=== PATIENT | female | born 1965 | race Two or more races ===

== ENCOUNTER 2020-01-17 16:23 | Emergency (ER) | payer OTHER ==
[~2020-01-17] VITALS: Ht 154.9 cm; Wt 96.2 kg
[2020-01-17 16:39] VITALS: BP 150/93
[2020-01-17] MEDS ORDERED: LORazepam 1mg tab ORAL ONE (16:45)
[2020-01-17 17:04] LABS: BASOPHILS % (AUTO) 0.4 % (0.0-2.0); EOSINOPHILS % (AUTO) 0.1 % (0.0-3.0); HEMATOCRIT 37.9 % (37.0-47.0); HEMOGLOBIN 12.9 G/DL (12.0-16.0); LYMPHOCYTES % (AUTO) 14.6 % (20.0-45.0); MEAN CORPUSCULAR VOLUME 87 FL (80-99); MONOCYTES % (AUTO) 2.1 % (1.0-10.0); NEUTROPHILS % (AUTO) 82.8 % (45.0-75.0); PLATELET COUNT 292 K/UL (150-450); RED BLOOD COUNT 4.33 M/UL (4.20-5.40); RED CELL DISTRIBUTION WIDTH 13.1 % (11.6-14.8); WHITE BLOOD COUNT 11.6 K/UL (4.8-10.8)
[2020-01-17 17:10] LABS: APPEARANCE,URINE CLEAR; BILIRUBIN, URINE NEGATIVE (NEGATIVE); COLOR,URINE PALE YELLOW; GLUCOSE, URINE (UA) NEGATIVE (NEGATIVE); KETONES,URINE NEGATIVE (NEGATIVE); LEUKOCYTE ESTERASE ,URINE NEGATIVE (NEGATIVE); NITRITE,URINE NEGATIVE (NEGATIVE); PH,URINE 6.5 (4.5-8.0); PROTEIN,URINE 2+ (NEGATIVE); UROBILINOGEN,URINE NORMAL MG/DL (0.0-1.0)
[2020-01-17 17:45] LABS: ANION GAP 12 mmol/L (5-15); BLOOD UREA NITROGEN 22 mg/dL (7-18); CALCIUM 8.3 MG/DL (8.5-10.1); CARBON DIOXIDE 26 MMOL/L (21-32); CHLORIDE 106 MMOL/L (98-107); CREATININE 0.9 MG/DL (0.55-1.30); SODIUM 144 MMOL/L (136-145)
--- NOTE | 2020-01-17 17:54 | Emergency Room Report ---
History of Present Illness General Chief Complaint: General Complaint Source: Patient Present Illness HPI 54-year-old female with no known significant past medical history here complaining of anxiety. Patient reports that she is more anxious now due to recent work situation, however denies any SI or HI. Reports that she went to her primary doctor 5 days ago and was given a prescription for prednisone, hydro xyzine and omeprazole due to the symptoms that she was experiencing. Denies any chest pain shortness of breath at this time complains of agitation denies any chest pain radiation dizziness. Denies any shortness of breath, cough and congestion, fever and chills, abdominal pain, nausea vomiting diarrhea. Appears to have high blood pressure denies history of hypertension. Reports that she takes hydroxyzine at night as she was experiencing difficulty sleeping. Denies any tobacco smoke, drug use, alcohol intake. Denies any unilateral generalized weakness. Is neurovascularly intact Allergies: Coded Allergies: No Known Allergies (Unverified , 01/17/20) COVID-19 Screening Contact w/high risk pt: No Experienced COVID-19 symptoms?: No COVID-19 Testing performed HEALTH CARE ANALYST: No Patient History Past Medical History: see triage record Past Surgical History: none Pertinent Family History: none Last Menstrual Period: na Now: No Immunizations: UTD Reviewed Nursing Documentation: PMH: Agreed; PSxH: Agreed Nursing Documentation-PMH Past Medical History: No History, Except For History Of Psychiatric Problem: Yes - anxiety Review of Systems All Other Systems: negative except mentioned in HPI Physical Exam Vital Signs Date Time Temp Pulse Resp B/P (MAP) Pulse Ox O2 Delivery O2 Flow Rate FiO2 01/17/20 16:27 97.5 67 15 180/100 (126) 99 Room Air Sp02 EP Interpretation: reviewed, abnormal - Elevated blood pressure General Appearance: alert, non-toxic, mild distress Head: normocephalic Eyes: bilateral eye normal inspection, bilateral eye PERRL ENT: hearing grossly normal, normal pharynx, no angioedema, normal voice Neck: full range of motion, supple/symm/no masses Respiratory: chest non-tender, lungs clear, normal breath sounds, no rhonchi, no respiratory distress, no retraction, no accessory muscle use, no wheezing, speaking full sentences Cardiovascular #1: regular rate, rhythm, no edema, no murmur Cardiovascular #2: 2+ carotid (R), 2+ carotid (L), 2+ radial (R), 2+ radial (L), 2+ dorsalis pedis (R), 2+ dorsalis pedis (L) Gastrointestinal: normal bowel sounds, non tender, soft, non-distended, no guarding, no rebound Rectal: deferred Genitourinary: no CVA tenderness Musculoskeletal: back normal Neurologic: alert, motor strength/tone normal, oriented x3, sensory intact, responsive, speech normal Psychiatric: no suicidal/homicidal ideation, anxious Skin: no rash Lymphatic: no adenopathy Medical Decision Making PA Attestation All my diagnosis and treatment plans were reviewed ad discussed with my supervising physician Dr. Mendoza Diagnostic Impression: Primary Impression: HTN (hypertension) Additional Impressions: Elevated brain natriuretic peptide (BNP) level Anxiety ER Course 54-year-old female with no known significant past medical history here complaining of anxiety. Patient reports that she is more anxious now due to recent work situation, however denies any SI or HI. Reports that she went to her primary doctor 5 days ago and was given a prescription for prednisone, hydroxyzine and omeprazole due to the symptoms that she was experiencing. Denies any chest pain shortness of breath at this time complains of agitation denies any chest pain radiation dizziness. Denies any shortness of breath, cough and congestion, fever and chills, abdominal pain, nausea vomiting diarrhea. Appears to have high blood pressure denies history of hypertension. Reports that she takes hydroxyzine at night as she was experiencing difficulty sleeping. Denies any tobacco smoke, drug use, alcohol intake. Denies any unilateral generalized weakness. Is neurovascularly intact Ddx considered but are not limited to: generalized anxiety disorder, panic attack, depression with psycotic featurs, bipolar disorder, drug overdose Vital signs: are WNL, pt. is afebrile H&PE are most consistent with: Hypertension, elevated BNP, anxiety ORDERS: CBC, CMP, UA, tox screen, troponin, EKG, chest x-ray, EtOH level ED INTERVENTIONS: P.o. Ativan DISCHARGE: At this time pt. is stable for d/c to home. Will provide printed patient care instructions, and any necessary prescriptions. Care plan and follow up instructions have been discussed with the patient prior to discharge. Follow-up with your primary care provider and possibly with beverage host due to your high blood pressure, also you need to follow-up with psychiatrist or psychologist regarding her anxiety. Take the medication that was given to you by your primary doctor. If worsening symptoms return to the emergency room EKG Diagnostic Results Rate: normal Rhythm: NSR ST Segments: no acute changes Other Impression No acute ST changes Chest X-Ray Diagnostic Results Chest X-Ray Diagnostic Results : Chest X-Ray Ordered: Yes # of Views/Limited/Complete: 1 View Indication: Other - palpitation EP Interpretation: Yes ALEJANDRO Xray: Interpretation reviewed, by supervising MD, and agrees with findings. Interpretation: no consolidation, no effusion, no pneumothorax Impression: No acute disease Electronically Signed by: Gloria Gallardo PA-C Last Vital Signs Date Time Temp Pulse Resp B/P (MAP) Pulse Ox O2 Delivery O2 Flow Rate FiO2 01/17/20 16:54 67 15 180/100 99 01/17/20 16:39 97.5 Room Air Disposition: HOME, SELF-CARE Condition: Stable Referrals: NOT CHOSEN IPA/MD,REFERRING (PCP) Patient Instructions: Generalized Anxiety Disorder, Hypertension, [id number] Additional Instructions: Follow-up with your primary care provider and possibly with beverage host due to your high blood pressure, also you need to follow-up with psychiatrist or psychologist regarding her anxiety. Take the medication that was given to you by your primary doctor. If worsening symptoms return to the emergency room. You may need to see a beverage host due to your elevated heart enzyme and possible enlarged heart Gloria Vargas Jan 17, 2020 17:54
[2020-01-17 17:55] LABS: ALANINE AMINOTRANSFERASE 31 U/L (12-78); ALBUMIN 3.7 G/DL (3.4-5.0); ALBUMIN/GLOBULIN RATIO 1.1 (1.0-2.7); ALKALINE PHOSPHATASE 99 U/L (46-116); ASPARTATE AMINO TRANSFERASE 19 U/L (15-37); BILIRUBIN,TOTAL 0.2 MG/DL (0.2-1.0)
[2020-01-17 18:23] VITALS: BP 136/85
--- NOTE | 2020-01-18 12:03 | Diagnostic Imaging Report ---
Procedure: XRAY Chest 1v Reason for study: Chest pain. Comparison films: None. FINDINGS: A single one view chest is obtained. Vascularity is normal. The lung spring are clear bilaterally. Cardiac and mediastinal silhouette are within normal limits. CP angles are sharp. The bony thorax appear unremarkable. IMPRESSION: NO ACUTE CARDIOPULMONARY DISEASE.
== END 2020-01-17 18:23 | disposition home or self-care (01) ==
LOC: EMR 16:53
DX: F41.9 Anxiety disorder, unspecified (principal); I10 Essential (primary) hypertension; R79.89 Other specified abnormal findings of blood chemistry
CPT/HCPCS: 36415; 71045; 80053; 80307; 81003; 83880; 84484; 85025; 93005; 96360; 99284; G0480; J7030